=== PATIENT | male | born 1965 | race Caucasian/White ===

== ENCOUNTER 2018-03-18 19:44 | Emergency (ER) | payer OTHER ==
--- NOTE | 2018-03-18 20:15 | PDOC ---
History of Present Illness - General History Source: Patient Exam Limitations: No Limitations - History of Present Illness Initial Comments: A portion of this note was documented by scribe services under my direction. I have reviewed the details of the note, within reason, and agree with the documentation. The case summary and management plan written by me. Procedure note: Reduction of the dislocated left index finger. Finger was relocated using manual traction and distraction. Patient tolerated well Patient was given the option of a ring block prior to reduction and patient opted to just have the finger reduced without a ring block or local anesthesia. Post reduction patient had full range of motion with minimal discomfort he was placed in the splint and given an orthopedist follow-up. An x-ray was initially ordered post reduction however patient did not want the x -ray as his symptoms had resolved and he had full range of motion. Patient said he would follow-up with the orthopedist. 03/18/18 20:55 <Mindy Ortiz I - Last Filed: 03/18/18 20:55> - General History Source: Patient Exam Limitations: No Limitations - History of Present Illness Initial Comments: 03/18/18 21:24 The patient is a 52 year old male with no known past medical history presents to the emergency department with an injury to the L. ring finger. The patient reports dislocation to the left ring finger with pain upon movement and swelling is noticed. Denies any numbness, tingling or change in sensation to the fingers. Denies any radiating pain throughout the hand. PAST MEDICAL HISTORY: no significant history PAST SURGICAL HISTORY: no significant history FAMILY HISTORY: no pertinent history ALLERGIES: None as per nursing notes ROS: General: No fevers or chills, no weakness, no weight loss HEENT: No change in vision. No sore throat,. No ear pain CardioVascular: No chest pain or shortness of breath Respiratory:No cough, or wheezing. Gastrointestinal: no nausea, vomiting, diarrhea or constipation, No rectal bleeding Genitourinary: No dysuria, hematuria, or frequency Musculoskeletal: (+) dislocation of the left ring finger. No joint or muscle pain or swelling Neurologic: No headache, vertigo, dizziness or loss of consciousness Psychiatric: nor depression Skin: No rashes or easy bruising Endocrine: no increased thirst or abnormal weight change Allergic: no skin or latex allergy All other systems reviewed and normal PE: GENERAL: The patient is awake, alert, and fully oriented, in no acute distress. HEAD: Normal with no signs of trauma. EYES: Pupils equal, round and reactive to light, extraocular movements intact, sclera anicteric, conjunctiva clear. EXTREMITIES: (+) Obvious dislocation of the PIP joint to the left ring finger. Post reduction: Full ROM with minimal discomfort. Laxity of the joint. Neurovascular distal intact. Normal range of motion. NEUROLOGICAL: Normal speech, normal gait. PSYCH: Normal mood, normal affect. SKIN: Warm, Dry, normal turgor, no rashes or lesions noted. <Noemi Bustillo - Last Filed: 03/18/18 21:26> - General Chief Complaint: Injury Stated Complaint: LEFT RING FINGER INJURY Time Seen by Provider: 03/18/18 19:47 Past History <Mindy Ortiz I - Last Filed: 03/18/18 20:55> <Noemi Bustillo - Last Filed: 03/18/18 21:26> - Past Medical History Allergies/Adverse Reactions: Allergies Allergy/AdvReac Type Severity Reaction Status Date / Time No Known Allergies Allergy Verified 03/18/18 19:45 Home Medications: Ambulatory Orders NK [No Known Home Medication] 03/18/18 *Physical Exam - Vital Signs Last Vital Signs Temp Pulse Resp BP Pulse Ox 98.3 F 74 18 116/78 99 03/18/18 19:45 03/18/18 19:45 03/18/18 19:45 03/18/18 19:45 03/18/18 19:45 <Noemi Bustillo - Last Filed: 03/18/18 21:26> *DC/Admit/Observation/Transfer - Discharge Dispostion Admit: No <Mindy Ortiz I - Last Filed: 03/18/18 20:55> - Attestations Scribe Attestion: 03/18/18 21:25 Documentation prepared by Noemi Bustillo, acting as medical office technician for Mindy Ortiz MD. <Noemi Bustillo - Last Filed: 03/18/18 21:26> Diagnosis at time of Disposition: Dislocation of left ring finger Qualifiers: Encounter type: initial encounter Qualified Code(s): S63.255A - Unspecified dislocation of left ring finger, initial encounter - Discharge Dispostion Disposition: HOME Condition at time of disposition: Good - Patient Instructions Additional Instructions: Wear the splint until use are seen by the orthopedist. Follow-up with the orthopedist call at [phone] Tuesday morning for an appointment. Tylenol or Motrin as needed for pain. Return to the emergency department immediately with ANY new, persistent or worsening symptoms. Continue any medications as previously prescribed by your physician. You should follow up with your primary doctor as soon as possible regarding today's emergency department visit. . Please make sure your doctor reviews the results of your emergency evaluation. Thank you for coming to the Emergency Department today for your care. It was a pleasure to see you today. Please note that your evaluation is INCOMPLETE until you follow-up with your doctor. -
[2018-03-18 20:57] VITALS: BP 116/78; PULSE 74; TEMP 98.3; BMI 23.0
== END 2018-03-18 20:58 | disposition home or self-care (01) ==
LOC: FER 19:44
PROC: 0RSXXZZ Reposition Left Finger Phalangeal Joint, External Approach (ICD-10-PCS; principal; 2018-03-18)
DX: S63.271A Dislocation of unspecified interphalangeal joint of left index finger, initial encounter (principal); X58.XXXA Exposure to other specified factors, initial encounter; Y93.9 Activity, unspecified; Y92.9 Unspecified place or not applicable
CPT/HCPCS: 99281-25